=== PATIENT | female | born 1985 | race Caucasian/White ===

== ENCOUNTER 2019-03-11 09:13 | Emergency (ER) | payer SELFPAY ==
[2019-03-11 09:43] LABS: Bilirubin Small (Negative); Blood, Urine Large (Negative); Glucose, Urine (Dipstick) Negative (Negative); Leukocyte Negative (Negative); Nitrite Negative (Negative); Protein, Urine (Dipstick) > or equal to 300 mg/dL (Neg-Trace); Urobilinogen 0.2 mg/dL (Less than 2)
[2019-03-11 09:44] LABS: Clarity Cloudy (Clear)
[2019-03-11 09:46] LABS: Bacteria/HPF None Seen HPF (None Seen); Pregnancy Test - Urine (BHCG) Negative (Negative); Pregu Control Background? CLEAR/WHITE (CLR/WHITE); Pregu Control Bar Appear? YES (CONTROL BAR); RBC/HPF Greater than 50 HPF (0-3); Specific Gravity 1.031 (1.002-1.036); Squamous Epithelial 0-3 HPF (0-3); WBC/HPF 0-3 HPF (0-3)
== END 2019-03-11 10:55 | disposition home or self-care (01) ==
LOC: BURERS 09:13
DX: N93.9 Abnormal uterine and vaginal bleeding, unspecified (principal); F41.9 Anxiety disorder, unspecified; F32.9 Major depressive disorder, single episode, unspecified
CPT/HCPCS: 81003; 81015; 81025; 99284